=== PATIENT | female | born 1980 | race Caucasian/White ===

== ENCOUNTER 2016-11-13 18:24 | Emergency (ER) | payer BC, OTHER ==
[2016-11-13] MEDS ORDERED: cefTRIAXone 250 MG Vial IM ONE (18:58)
[2016-11-13] MEDS ORDERED: cefTRIAXone 2,000 MG in Lidocaine 1% 4 ML IM ONE (19:05)
--- NOTE | 2016-11-13 19:11 | EDM.PDOC ---
ED HPI Skin/Rash - General Chief Complaint: Skin Complaint Stated Complaint: PAIN LT LEG Time Seen by Provider: 11/13/16 18:55 Source: Reports: Patient History Limitations: Reports: No limitations - History of Present Illness INITIAL COMMENTS - FREE TEXT/NARRATIVE: History of present illness: [28-year-old female presenting with complaint of wound to left babcock. She injured her left babcock approximately a week ago when she sustained incidental laceration with a subsequent gouging motion on [employer] trailer.] Review of systems: As per history of present illness and below otherwise all systems reviewed and negative. Past medical history: As per history of present illness and as reviewed below otherwise noncontributory. Surgical history: As per history of present illness and as reviewed below otherwise noncontributory. Social history: No reported history of drug or alcohol abuse. Family history: As per history of present illness and as reviewed below otherwise noncontributory. Physical exam: HEENT: Atraumatic, normocephalic, pupils reactive, negative for conjunctival pallor or scleral icterus, mucous membranes moist, throat clear, neck supple, nontender, trachea midline. Lungs: Clear to auscultation, breath sounds equal bilaterally, chest nontender. Heart: S1S2, regular, negative for clicks, rubs, or JVD. Abdomen: Soft, nondistended, nontender. Negative for masses or hepatosplenomegaly. Negative for costovertebral tenderness. Pelvis: Stable nontender. Genitourinary: Deferred. Rectal: Deferred. Extremities: Atraumatic, negative for cords or calf pain. Neurovascular unremarkable. Neuro: Awake, alert, oriented. Cranial nerves II through XII unremarkable. Cerebellum unremarkable. Motor and sensory unremarkable throughout. Exam nonfocal. Skin: Unresolved wound to left babcock, some amount of scabbing and granulation noted that wound has erythema at all borders in patient indicates that this has not improved over the last 3 days. Patient indicates she was using self-care with alcohol wipes, antibacterial soaps as well as one uses hydrogen peroxide. Patient does have antibiotics for UTI which would be insufficient for a skin infection that might explain why the cellulitis has not gotten significantly worse the Diagnostics: [] Therapeutics: [] Impression: [Skin infection /cellulitis] Plan: [Antibiotics f/u with PCP] Definitive disposition and diagnosis as appropriate pending reevaluation and review of above. - Related Data Allergies Allergy/AdvReac Type Severity Reaction Status Date / Time No Known Allergies Allergy Verified 11/13/16 18:38 Home Meds: Ambulatory Orders Medication Instructions Recorded Confirmed Amoxicillin? For Kidney Stones 0 mg PO DAILY 11/13/16 Cephalexin [Keflex] 500 mg PO QID #40 capsule 11/13/16 Past Medical History - Past Health History Medical/Surgical History: Denies Medical/Surgical History Social & Family History - Family History Family Medical History: Noncontributory - Tobacco Use Smoking Status *Q: Never Smoker - Recreational Drug Use Recreational Drug Use: No ED ROS GENERAL - Review of Systems Review Of Systems: See Below (The history of present illness) ED EXAM, SKIN/RASH Exam: See Below (See history of present illness) Course - Vital Signs Last Recorded V/S: Last Vital Signs Temp 37.1 C 11/13/16 18:40 Pulse 85 11/13/16 18:40 Resp 18 11/13/16 18:40 BP 122/81 11/13/16 18:40 Pulse Ox 98 11/13/16 18:40 - Orders/Labs/Meds Meds: Medications Discontinued Medications Generic Name Dose Route Start Last Admin Trade Name Freq PRN Reason Stop Dose Admin Ceftriaxone Sodium 2,000 mg 11/13/16 18:58 Rocephin IM 11/13/16 18:59 ONETIME ONE Departure - Departure Time of Disposition: 19:24 Disposition: Home, Self-Care 01 Condition: good Clinical Impression: Cellulitis, Local infection of wound Prescriptions: Cephalexin [Keflex] 500 mg PO QID #40 capsule Forms: ED Department Discharge Additional Instructions: The following information is given to patients seen in the emergency department who are being discharged to home. This information is to outline your options for follow-up care. We provide all patients seen in our emergency department with a follow-up referral. The need for follow-up, as well as the timing and circumstances, are variable depending upon the specifics of your emergency department visit. If you don't have a primary care physician on staff, we will provide you with a referral. We always advise you to contact your personal physician following an emergency department visit to inform them of the circumstance of the visit and for follow-up with them and/or the need for any referrals to a consulting specialist. The emergency department will also refer you to a specialist when appropriate. This referral assures that you have the opportunity for follow-up care with a specialist. All of these measure are taken in an effort to provide you with optimal care, which includes your follow-up. Under all circumstances we always encourage you to contact your private physician who remains a resource for coordinating your care. When calling for follow-up care, please make the office aware that this follow-up is from your recent emergency room visit. If for any reason you are refused follow-up, please contact the [facility] Emergency Department at and asked to speak to the emergency department charge nurse. Medication as directed Up with PCP 1-2 days Return to ED as needed as discussed
[2016-11-13 19:43] VITALS: BP 122/83
== END 2016-11-13 19:36 | disposition home or self-care (01) ==
LOC: MW.ED 18:24
DX: L03.116 Cellulitis of left lower limb (principal)
CPT/HCPCS: 96372; 99283; J0696